=== PATIENT | male | born 1975 | race Two or more races ===

== ENCOUNTER 2018-03-20 20:02 | Emergency (ER) | payer BC ==
[~2018-03-20] VITALS: Ht 165.1 cm; Wt 86.2 kg
[2018-03-20 20:35] VITALS: BP 137/92
[2018-03-21] MEDS ORDERED: diphenhdrAMINE HCL 25 MG CAP PO ONE
[2018-03-21] MEDS ORDERED: TRIAMCINOLONE 40MG/ML 1ML VIAL IM ONE
[2018-03-21] MEDS ORDERED: FAMOTIDINE 20 MG TAB PO ONE
== END 2018-03-21 00:30 | disposition home or self-care (01) ==
LOC: ER 20:02
DX: T78.40XA Allergy, unspecified, initial encounter (principal); Z88.0 Allergy status to penicillin
CPT/HCPCS: 96372; 99283; J3301

== ENCOUNTER 2021-09-23 03:08 | Inpatient (IN) | payer BC ==
[~2021-09-23] VITALS: Ht 165.1 cm; Wt 92.4 kg
[2021-09-23 04:25] LABS: Basophils # (auto) 0.1 10 ^3/uL (0-0.2); Eosinophils # (auto) 0.1 10 ^3/uL (0-0.8); Eosinophils % (auto) 1.2 % (0.0-7.0); Hematocrit 38.4 % (41.0-53.0); Lymphocytes # (auto) 1.8 10 ^3/uL (0.4-5.4); Mean Corpuscular Volume 68.1 fL (80.0-100.0); Monocytes # (auto) 0.6 10 ^3/uL (0-1.3); Neutrophils # (auto) 8.3 10 ^3/uL (1.6-8.6); White Blood Cell 10.9 10^3/uL (4.4-10.8)
[2021-09-23 04:30] LABS: Basophils % (auto) 0.9 % (0.0-2.0); Hemoglobin 12.4 g/dL (13.5-17.5); Lymphocytes % (auto) 16.5 % (10.0-50.0); Mean Corpuscular Hemoglobin 21.9 pg (28.0-32.0); Mean Corpuscular Hgb Conc. 32.2 g/dL (32.0-36.0); Monocytes % (auto) 5.8 % (0.0-12.0); Neutrophils % (auto) 75.6 % (37.0-80.0); Red Blood Cells 5.64 10^6/uL (4.5-5.90); Red Cell Distribution Width 18.3 % (11.8-14.3)
[2021-09-23 04:33] LABS: Potassium 3.9 mmol/L (3.5-5.1)
[2021-09-23 04:39] LABS: Albumin 4.1 g/dL (3.4-5.0); BUN/Creatinine Ratio 13.3; Calcium 9.1 mg/dL (8.5-10.1); Magnesium 2.1 mg/dL (1.6-2.6)
[2021-09-23 04:44] LABS: Bilirubin, Total 0.4 mg/dL (0.2-1.0)
[2021-09-23 10:55] LABS: Urine Bacteria NONE SEEN /hpf (None Seen); Urine Blood Negative /uL (Negative); Urine Mucus FEW (None Seen); Urine Specific Gravity 1.034 (1.001-1.035); Urine WBC <1 /hpf (0 - 3)
[2021-09-23] MEDS ORDERED: SODIUM CHLORIDE 0.9% 500 ML IVB ONE (11:30)
[2021-09-23] MEDS ORDERED: HYDROmorphone HCL 2 MG/ML VL IV ONE ×2 (11:30→16:30)
[2021-09-23] MEDS ORDERED: METOCLOPRAMIDE HCL 5MG/ml INJ 2ml VIAL IV ONE (11:30)
[2021-09-23] MEDS ORDERED: SODIUM CHLORIDE 0.9% 1,000 ML IV ONE (11:30)
[2021-09-23] MEDS ORDERED: PROMETHAZINE HCL 25 MG/ML 1ML IV ONE (16:30)
[2021-09-23] MEDS ORDERED: ASPirin 81 mg TAB PO ONE (19:30)
[2021-09-23] MEDS ORDERED: DOCUSATE SOD 100 MG CAP PO PRN (19:30)
[2021-09-23] MEDS ORDERED: SODIUM CHLORIDE 0.9% 1,000 ML IV SCH (19:30)
[2021-09-23] MEDS ORDERED: MORPHINE SULFATE INJECTION 2 MG/ML SYRG IV PRN ×2 (19:30)
[2021-09-23] MEDS ORDERED: NITROGLYCERIN 0.4 MG SL TAB SL PRN ×2 (19:30)
[2021-09-23] MEDS ORDERED: METOPROLOL SUCCINATE XL 50 MG TAB PO ONE (19:30)
[2021-09-23] MEDS ORDERED: LORazepam 0.5 MG TAB PO PRN (19:30)
[2021-09-23] MEDS ORDERED: HYDROcodone-ACET 5/325MG TAB PO PRN (19:30)
[2021-09-23] MEDS ORDERED: ALUM & MAG HYDROX-SIMETH LIQ(MAALOX) 30 ML PO PRN (19:30)
[2021-09-23] MEDS ORDERED: SUCRALFATE 1 GM/10 ML ORAL SUSP PO ONE (19:30)
[2021-09-23] MEDS ORDERED: ACETAMINOPHEN 325 MG TAB PO PRN (19:30)
[2021-09-23] MEDS ORDERED: ATORVASTATIN 20 MG TAB PO ONE (19:30)
[2021-09-23] MEDS ORDERED: PANTOPRAZOLE 40 MG/10 ML VIAL INJ IV ONE (19:30)
[2021-09-23] MEDS: MORPHINE SULFATE INJECTION 2 MG/ML SYRG IV PRN (20:04)
[2021-09-23] MEDS: ONDANSETRON HCL 4 MG/2 ML VIAL IV PRN (20:05)
[2021-09-23 20:41] LABS: Cholesterol 170 mg/dL (< 200)
[2021-09-23 20:44] LABS: HDL Cholesterol 38 mg/dL (40-59); LDL Cholesterol 114 mg/dL (< 100); Triglycerides 118 mg/dL (< 150)
[2021-09-23 22:23] LABS: Amphetamine Screen, Urine NEGATIVE (NEGATIVE); Barbiturate Scree,Urine NEGATIVE (NEGATIVE); Benzodiazephine Screen, Urine NEGATIVE (NEGATIVE); Cannabinoid Screen, Urine NEGATIVE (NEGATIVE); Cocaine Screen, Urine NEGATIVE (NEGATIVE); Opiate Scree,Urine NEGATIVE (NEGATIVE); Phencyclidine Screen, Urine NEGATIVE (NEGATIVE)
[2021-09-23] MEDS: SUCRALFATE 1 GM/10 ML ORAL SUSP PO SCH (22:25)
[2021-09-23 23:23] VITALS: BP 117/73
[2021-09-24] MEDS: MORPHINE SULFATE INJECTION 2 MG/ML SYRG IV PRN ×4 (03:27→20:27)
[2021-09-24] MEDS: ONDANSETRON HCL 4 MG/2 ML VIAL IV PRN (03:28)
[2021-09-24 05:13] VITALS: BP 108/62
[2021-09-24] MEDS: SUCRALFATE 1 GM/10 ML ORAL SUSP PO SCH ×2 (06:13→11:56)
[2021-09-24 07:18] LABS: Basophils # (auto) 0.1 10 ^3/uL (0-0.2); Eosinophils # (auto) 0 10 ^3/uL (0-0.8); Lymphocytes # (auto) 1.3 10 ^3/uL (0.4-5.4); Mean Corpuscular Hgb Conc. 31.1 g/dL (32.0-36.0); White Blood Cell 15.6 10^3/uL (4.4-10.8)
[2021-09-24 07:22] LABS: Basophils % (auto) 0.5 % (0.0-2.0); Eosinophils % (auto) 0.1 % (0.0-7.0); Hematocrit 32.3 % (41.0-53.0); Lymphocytes % (auto) 8.4 % (10.0-50.0); Mean Corpuscular Hemoglobin 21.2 pg (28.0-32.0); Monocytes # (auto) 1.1 10 ^3/uL (0-1.3); Monocytes % (auto) 7.2 % (0.0-12.0); Neutrophils # (auto) 13.1 10 ^3/uL (1.6-8.6); Neutrophils % (auto) 83.8 % (37.0-80.0); Red Blood Cells 4.75 10^6/uL (4.5-5.90); Red Cell Distribution Width 17.9 % (11.8-14.3)
[2021-09-24 07:38] LABS: INR 1.14 (0.9-1.15); Partial Thromboplastin Time 32.8 sec (23.6-33.0)
[2021-09-24 07:42] LABS: Potassium 3.7 mmol/L (3.5-5.1)
[2021-09-24 08:02] LABS: Albumin 3.1 g/dL (3.4-5.0); Bilirubin, Total 0.7 mg/dL (0.2-1.0); Calcium 8.4 mg/dL (8.5-10.1); Magnesium 2.7 mg/dL (1.6-2.6); Phosphorus 2.4 mg/dL (2.5-4.90); Total Protein 6.8 g/dL (6.4-8.2); Uric Acid 5.8 mg/dL (3.5-7.2)
[2021-09-24 09:07] VITALS: BP 121/74
[2021-09-24] MEDS: PANTOPRAZOLE 40 MG/10 ML VIAL INJ IV SCH ×2 (09:41→20:28)
[2021-09-24] MEDS: ENOXAPARIN SOD 40 MG/0.4 ML SYRINGE SC SCH (09:41)
[2021-09-24] MEDS ORDERED: ASPirin 81 mg TAB PO SCH (10:00)
[2021-09-24] MEDS ORDERED: METOPROLOL SUCCINATE XL 50 MG TAB PO SCH (10:00)
[2021-09-24] MEDS ORDERED: GASTROGRAFIN 120 ML SOL ONE (10:34)
[2021-09-24] MEDS ORDERED: EZ-GAS II GRANULES (RADIOLOGY USE) PO ONE (10:37)
[2021-09-24] MEDS ORDERED: IOHEXOL 300 MG/ML 100ML BOTTLE IJ ONE (12:02)
[2021-09-24 12:48] VITALS: BP 126/75
[2021-09-24] MEDS ORDERED: LIDOCAINE 2% (LOCAL ANESTH.) PF 5ml SDV ONE (14:25)
[2021-09-24] MEDS ORDERED: ROCURONIUM 10MG/ML 10ML VIAL IV ONE (14:25)
[2021-09-24] MEDS ORDERED: KETAMINE HCL 10 ML ONE (14:25)
[2021-09-24] MEDS ORDERED: HYDROmorphone HCL 2 MG/ML VL ONE (14:25)
[2021-09-24] MEDS ORDERED: MIDAZOLAM HCL 2MG/2ML 2ml VIAL (1mg/ml) ONE (14:25)
[2021-09-24] MEDS ORDERED: PROPOFOL 10 MG/ML 20 ML IV ONE (14:25)
[2021-09-24] MEDS ORDERED: DexAMETHasone SOD PHOS 10MG/1ML VIAL INJ ONE (14:25)
[2021-09-24] MEDS ORDERED: GLYCOPYRROLATE 0.2 MG/ML 1ML VIAL ONE (14:25)
[2021-09-24] MEDS ORDERED: ePHEDrine SULFATE 50 MG/ML AMP ONE (14:25)
[2021-09-24] MEDS ORDERED: fentaNYL CITRATE 100 MCG/2 ML VL ONE (14:26)
[2021-09-24] MEDS ORDERED: fentaNYL CITRATE 5 ML ONE (14:26)
[2021-09-24] MEDS ORDERED: levoFLOXacin 500MG 100 ML IV ONE (14:38)
[2021-09-24] MEDS ORDERED: FAMOTIDINE (10MG/ML) 2ML VL IV ONE (14:50)
[2021-09-24] MEDS ORDERED: HYDROmorphone HCL 2 MG/ML VL IV PRN (17:15)
[2021-09-24] MEDS ORDERED: ONDANSETRON HCL 4 MG/2 ML VIAL IV PRN (17:15)
[2021-09-24] MEDS ORDERED: FUROSEMIDE 20 MG/2 ML VIAL IV ONE (17:30)
[2021-09-24 19:14] LABS: Basophils # (auto) 0 10 ^3/uL (0-0.2); Eosinophils # (auto) 0 10 ^3/uL (0-0.8); Mean Corpuscular Volume 68.3 fL (80.0-100.0); Monocytes # (auto) 0.4 10 ^3/uL (0-1.3)
[2021-09-24 19:16] LABS: Basophils % (auto) 0.3 % (0.0-2.0); Hematocrit 34.3 % (41.0-53.0); Hemoglobin 10.5 g/dL (13.5-17.5); Lymphocytes # (auto) 0.4 10 ^3/uL (0.4-5.4); Lymphocytes % (auto) 2.6 % (10.0-50.0); Mean Corpuscular Hgb Conc. 30.7 g/dL (32.0-36.0); Monocytes % (auto) 2.6 % (0.0-12.0); Neutrophils % (auto) 94.5 % (37.0-80.0); Red Blood Cells 5.02 10^6/uL (4.5-5.90); Red Cell Distribution Width 17.9 % (11.8-14.3); White Blood Cell 16.9 10^3/uL (4.4-10.8)
[2021-09-24 19:35] LABS: BUN/Creatinine Ratio 14.1; Calcium 8.3 mg/dL (8.5-10.1); Potassium 4.4 mmol/L (3.5-5.1)
[2021-09-24 19:38] LABS: Bilirubin, Total 0.5 mg/dL (0.2-1.0); Total Protein 6.2 g/dL (6.4-8.2)
[2021-09-24] MEDS: MEROPENEM 1GM IVPB 100 ML IV SCH ×2 (20:33→20:35)
[2021-09-24] MEDS: D5W/ SOD CHL 0.9%/KCL 20MEQ 1,000 ML IV SCH (20:34)
[2021-09-24 22:00] VITALS: BP 110/77
[2021-09-24] MEDS ORDERED: ATORVASTATIN 20 MG TAB PO SCH (22:00)
[2021-09-25] MEDS ORDERED: HYDROmorphone HCL 2 MG/ML VL IV PRN (00:15)
[2021-09-25] MEDS: D5W/ SOD CHL 0.9%/KCL 20MEQ 1,000 ML IV SCH ×3 (00:30→20:30)
[2021-09-25 05:00] VITALS: BP 113/73
[2021-09-25] MEDS: MEROPENEM 1GM IVPB 100 ML IV SCH ×3 (05:11→21:54)
[2021-09-25 06:20] LABS: Basophils # (auto) 0 10 ^3/uL (0-0.2); Basophils % (auto) 0.1 % (0.0-2.0); Eosinophils # (auto) 0 10 ^3/uL (0-0.8); Hematocrit 31.6 % (41.0-53.0); Lymphocytes # (auto) 0.7 10 ^3/uL (0.4-5.4); Monocytes # (auto) 0.8 10 ^3/uL (0-1.3); White Blood Cell 15.4 10^3/uL (4.4-10.8)
[2021-09-25 06:21] LABS: Lymphocytes % (auto) 4.6 % (10.0-50.0); Mean Corpuscular Hemoglobin 21.4 pg (28.0-32.0); Mean Corpuscular Hgb Conc. 31.5 g/dL (32.0-36.0); Mean Corpuscular Volume 68.1 fL (80.0-100.0); Neutrophils # (auto) 13.9 10 ^3/uL (1.6-8.6); Neutrophils % (auto) 90.3 % (37.0-80.0); Red Blood Cells 4.65 10^6/uL (4.5-5.90); Red Cell Distribution Width 18.4 % (11.8-14.3)
[2021-09-25 06:28] LABS: Lactic Acid w/Reflex 2.1 mmol/L (0.4-2.0)
[2021-09-25 06:33] LABS: Potassium 3.9 mmol/L (3.5-5.1)
[2021-09-25 06:44] LABS: Albumin 2.9 g/dL (3.4-5.0); BUN/Creatinine Ratio 10.3; Bilirubin, Total 0.4 mg/dL (0.2-1.0); Calcium 8.6 mg/dL (8.5-10.1); Magnesium 2.6 mg/dL (1.6-2.6); Total Protein 6.4 g/dL (6.4-8.2)
[2021-09-25] MEDS: HYDROmorphone HCL 2 MG/ML VL IV PRN ×3 (08:40→19:35)
[2021-09-25 09:00] VITALS: BP 127/75
[2021-09-25] MEDS: ENOXAPARIN SOD 40 MG/0.4 ML SYRINGE SC SCH (10:00)
[2021-09-25] MEDS: PANTOPRAZOLE 40 MG/10 ML VIAL INJ IV SCH ×2 (10:00→21:54)
[2021-09-25] MEDS ORDERED: TPN PER PHARMACY 0 ML IV SCH (10:15)
[2021-09-25] MEDS ORDERED: LORazepam 2MG/ML-1ML VIAL IV PRN (10:30)
[2021-09-25 11:09] LABS: Phosphorus 2.7 mg/dL (2.5-4.90)
[2021-09-25 12:37] VITALS: BP 121/72
[2021-09-25 16:35] VITALS: BP 117/79
[2021-09-25] MEDS ORDERED: SORE THROAT SPRAY 6OZ BOTTLE MT PRN (16:45)
[2021-09-25] MEDS ORDERED: PPN PER PHARMACY IV NR ×7 (20:00)
[2021-09-25 22:00] VITALS: BP 125/81
[2021-09-26] MEDS ORDERED: DEXTROSE (50%) 50ML SYRG IV SCH
[2021-09-26] MEDS: ACCU-CHEK COMFORT CURVE STRIP VI SCH ×4 (00:06→18:09)
[2021-09-26] MEDS: InsuLIN REG 1unit/0.01ml Soln (100units/ml) SC SCH ×4 (00:11→18:00)
[2021-09-26] MEDS: D5W/ SOD CHL 0.9%/KCL 20MEQ 1,000 ML IV SCH (01:48)
[2021-09-26] MEDS: HYDROmorphone HCL 2 MG/ML VL IV PRN ×3 (03:36→16:15)
[2021-09-26 04:29] VITALS: BP 134/77
[2021-09-26] MEDS: MEROPENEM 1GM IVPB 100 ML IV SCH ×3 (05:15→23:38)
[2021-09-26 07:01] LABS: Basophils # (auto) 0.1 10 ^3/uL (0-0.2); Eosinophils # (auto) 0 10 ^3/uL (0-0.8); Lymphocytes # (auto) 1.6 10 ^3/uL (0.4-5.4); Mean Corpuscular Hgb Conc. 30.5 g/dL (32.0-36.0); Neutrophils # (auto) 8.7 10 ^3/uL (1.6-8.6)
[2021-09-26 07:03] LABS: Basophils % (auto) 0.5 % (0.0-2.0); Eosinophils % (auto) 0.3 % (0.0-7.0); Hematocrit 35.2 % (41.0-53.0); Hemoglobin 10.7 g/dL (13.5-17.5); Lymphocytes % (auto) 14.3 % (10.0-50.0); Mean Corpuscular Hemoglobin 20.9 pg (28.0-32.0); Mean Corpuscular Volume 68.6 fL (80.0-100.0); Monocytes # (auto) 0.8 10 ^3/uL (0-1.3); Monocytes % (auto) 6.9 % (0.0-12.0); Red Blood Cells 5.14 10^6/uL (4.5-5.90); Red Cell Distribution Width 17.9 % (11.8-14.3); White Blood Cell 11.2 10^3/uL (4.4-10.8)
[2021-09-26 07:22] LABS: Potassium 3.9 mmol/L (3.5-5.1)
[2021-09-26 07:33] LABS: Bilirubin, Total 0.3 mg/dL (0.2-1.0); Calcium 8.3 mg/dL (8.5-10.1); Magnesium 2.8 mg/dL (1.6-2.6); Phosphorus 2.1 mg/dL (2.5-4.90); Total Protein 6.7 g/dL (6.4-8.2)
[2021-09-26 09:00] VITALS: BP 123/85
[2021-09-26] MEDS: PANTOPRAZOLE 40 MG/10 ML VIAL INJ IV SCH ×2 (09:27→23:38)
[2021-09-26] MEDS: ENOXAPARIN SOD 40 MG/0.4 ML SYRINGE SC SCH (09:28)
[2021-09-26] MEDS ORDERED: POTASSIUM PHOSPHATE 22 MEQ in SODIUM CHL 0.9% 100 ML IV ONE (10:45)
[2021-09-26 13:43] VITALS: BP 118/73
[2021-09-26] MEDS ORDERED: LIDOCAINE 1% (LOCAL ANESTH.) PF 5ml SDV ID ONE (15:00)
[2021-09-26 16:34] VITALS: BP 130/73
[2021-09-26 20:00] VITALS: BP 121/74
[2021-09-26] MEDS: PPN PER PHARMACY IV NR ×6 (21:32)
[2021-09-26 21:52] VITALS: BP 136/82
[2021-09-26] MEDS: SODIUM CHLOR 0.9% PF (SALINE LOCK) 10ML VIAL/SYR IV SCH (23:39)
[2021-09-27 05:00] VITALS: BP 124/68
[2021-09-27] MEDS: ACCU-CHEK COMFORT CURVE STRIP VI SCH ×5 (05:20→23:58)
[2021-09-27] MEDS: InsuLIN REG 1unit/0.01ml Soln (100units/ml) SC SCH ×5 (05:20→23:57)
[2021-09-27 07:00] LABS: Basophils # (auto) 0.1 10 ^3/uL (0-0.2); Eosinophils # (auto) 0.1 10 ^3/uL (0-0.8); Lymphocytes # (auto) 1.3 10 ^3/uL (0.4-5.4); Mean Corpuscular Hemoglobin 20.8 pg (28.0-32.0)
[2021-09-27 07:02] LABS: Basophils % (auto) 0.8 % (0.0-2.0); Eosinophils % (auto) 1.6 % (0.0-7.0); Hematocrit 32.3 % (41.0-53.0); Lymphocytes % (auto) 17.4 % (10.0-50.0); Monocytes # (auto) 0.7 10 ^3/uL (0-1.3); Monocytes % (auto) 9.3 % (0.0-12.0); Neutrophils # (auto) 5.2 10 ^3/uL (1.6-8.6); Neutrophils % (auto) 70.9 % (37.0-80.0); Red Cell Distribution Width 17.9 % (11.8-14.3); White Blood Cell 7.4 10^3/uL (4.4-10.8)
[2021-09-27 07:09] LABS: Potassium 3.7 mmol/L (3.5-5.1)
[2021-09-27 07:15] LABS: Albumin 2.8 g/dL (3.4-5.0); BUN/Creatinine Ratio 18.2; Bilirubin, Total 0.4 mg/dL (0.2-1.0); Calcium 8.5 mg/dL (8.5-10.1); Magnesium 2.8 mg/dL (1.6-2.6); Phosphorus 3.1 mg/dL (2.5-4.90); Total Protein 6.4 g/dL (6.4-8.2)
[2021-09-27 07:21] LABS: Mean Corpuscular Volume 67.3 fL (80.0-100.0)
[2021-09-27] MEDS: MEROPENEM 1GM IVPB 100 ML IV SCH ×3 (07:22→21:31)
[2021-09-27 09:00] VITALS: BP 119/74
[2021-09-27] MEDS: HYDROmorphone HCL 2 MG/ML VL IV PRN ×2 (09:18→17:24)
[2021-09-27] MEDS: SODIUM CHLOR 0.9% PF (SALINE LOCK) 10ML VIAL/SYR IV SCH ×2 (10:00→22:00)
[2021-09-27] MEDS: ENOXAPARIN SOD 40 MG/0.4 ML SYRINGE SC SCH (10:00)
[2021-09-27] MEDS: PANTOPRAZOLE 40 MG/10 ML VIAL INJ IV SCH ×2 (10:00→22:39)
[2021-09-27 13:00] VITALS: BP 134/74
[2021-09-27 17:00] VITALS: BP 148/70
[2021-09-27] MEDS: PPN PER PHARMACY IV NR ×6 (19:45)
[2021-09-27] MEDS: TPN PER PHARMACY IV NR ×16 (20:47→21:00)
[2021-09-27 22:00] VITALS: BP 133/74
[2021-09-28] MEDS: MORPHINE SULFATE INJECTION 2 MG/ML SYRG IV PRN ×2 (02:00→09:29)
[2021-09-28 05:00] VITALS: BP 123/66
[2021-09-28] MEDS: MEROPENEM 1GM IVPB 100 ML IV SCH ×3 (06:10→21:24)
[2021-09-28] MEDS: InsuLIN REG 1unit/0.01ml Soln (100units/ml) SC SCH ×4 (06:12→23:06)
[2021-09-28] MEDS: ACCU-CHEK COMFORT CURVE STRIP VI SCH ×4 (06:12→23:03)
[2021-09-28 06:24] LABS: Potassium 3.7 mmol/L (3.5-5.1)
[2021-09-28 06:31] LABS: Albumin 2.7 g/dL (3.4-5.0); BUN/Creatinine Ratio 19.7; Bilirubin, Total 0.3 mg/dL (0.2-1.0); Calcium 8.4 mg/dL (8.5-10.1); Magnesium 2.7 mg/dL (1.6-2.6); Total Protein 6.3 g/dL (6.4-8.2)
[2021-09-28 06:37] LABS: Basophils # (auto) 0.1 10 ^3/uL (0-0.2); Eosinophils # (auto) 0.3 10 ^3/uL (0-0.8); Lymphocytes # (auto) 1.5 10 ^3/uL (0.4-5.4); Monocytes # (auto) 0.6 10 ^3/uL (0-1.3)
[2021-09-28 06:39] LABS: Basophils % (auto) 1.2 % (0.0-2.0); Lymphocytes % (auto) 22.4 % (10.0-50.0); Mean Corpuscular Hgb Conc. 31.1 g/dL (32.0-36.0); Monocytes % (auto) 8.3 % (0.0-12.0); Neutrophils # (auto) 4.4 10 ^3/uL (1.6-8.6); Neutrophils % (auto) 64.1 % (37.0-80.0); Red Blood Cells 4.76 10^6/uL (4.5-5.90); Red Cell Distribution Width 17.8 % (11.8-14.3); White Blood Cell 6.9 10^3/uL (4.4-10.8)
[2021-09-28 06:44] LABS: Mean Corpuscular Volume 67.3 fL (80.0-100.0)
[2021-09-28] MEDS ORDERED: GASTROGRAFIN 120 ML SOL ONE (08:21)
[2021-09-28] MEDS ORDERED: OMNIPAQUE ORAL SOLN 500ml 12mg/ml PO ONE (09:17)
[2021-09-28] MEDS: ENOXAPARIN SOD 40 MG/0.4 ML SYRINGE SC SCH (09:27)
[2021-09-28] MEDS: SODIUM CHLOR 0.9% PF (SALINE LOCK) 10ML VIAL/SYR IV SCH ×2 (09:27→21:25)
[2021-09-28] MEDS: PANTOPRAZOLE 40 MG/10 ML VIAL INJ IV SCH ×2 (09:27→21:31)
[2021-09-28 09:36] VITALS: BP 137/80
[2021-09-28 13:00] VITALS: BP 123/83
[2021-09-28 17:03] VITALS: BP 124/74
[2021-09-28] MEDS ORDERED: TPN PER PHARMACY IV NR ×9 (20:00)
[2021-09-28] MEDS: HYDROmorphone HCL 2 MG/ML VL IV PRN (20:36)
[2021-09-28 22:00] VITALS: BP 110/79
[2021-09-29 05:00] VITALS: BP 121/82
[2021-09-29] MEDS: MEROPENEM 1GM IVPB 100 ML IV SCH ×3 (05:09→22:26)
[2021-09-29] MEDS: InsuLIN REG 1unit/0.01ml Soln (100units/ml) SC SCH ×4 (05:09→23:31)
[2021-09-29] MEDS: ACCU-CHEK COMFORT CURVE STRIP VI SCH ×4 (05:10→23:30)
[2021-09-29 07:54] LABS: Potassium 4.1 mmol/L (3.5-5.1)
[2021-09-29 08:00] VITALS: BP 121/74
[2021-09-29 08:02] LABS: Albumin 2.9 g/dL (3.4-5.0); BUN/Creatinine Ratio 21.4; Bilirubin, Total 0.4 mg/dL (0.2-1.0); Calcium 8.5 mg/dL (8.5-10.1); Phosphorus 3.4 mg/dL (2.5-4.90); Total Protein 6.6 g/dL (6.4-8.2)
[2021-09-29 09:00] VITALS: BP 111/80
[2021-09-29] MEDS: SODIUM CHLOR 0.9% PF (SALINE LOCK) 10ML VIAL/SYR IV SCH ×2 (09:50→22:26)
[2021-09-29] MEDS: ENOXAPARIN SOD 40 MG/0.4 ML SYRINGE SC SCH (09:50)
[2021-09-29] MEDS: PANTOPRAZOLE 40 MG/10 ML VIAL INJ IV SCH ×2 (09:50→22:26)
[2021-09-29 13:00] VITALS: BP 116/78
[2021-09-29] MEDS: TPN PER PHARMACY IV NR ×8 (20:34)
[2021-09-29 22:00] VITALS: BP 123/72
[2021-09-30] MEDS: MORPHINE SULFATE INJECTION 2 MG/ML SYRG IV PRN (00:57)
[2021-09-30 05:00] VITALS: BP 120/68
[2021-09-30] MEDS: MEROPENEM 1GM IVPB 100 ML IV SCH ×3 (05:48→21:36)
[2021-09-30] MEDS: ACCU-CHEK COMFORT CURVE STRIP VI SCH ×3 (05:54→18:00)
[2021-09-30] MEDS: InsuLIN REG 1unit/0.01ml Soln (100units/ml) SC SCH ×3 (06:00→18:00)
[2021-09-30 07:33] LABS: Basophils # (auto) 0.1 10 ^3/uL (0-0.2); Basophils % (auto) 1.1 % (0.0-2.0); Hemoglobin 10.9 g/dL (13.5-17.5); Mean Corpuscular Volume 67.5 fL (80.0-100.0); Monocytes # (auto) 0.7 10 ^3/uL (0-1.3)
[2021-09-30 07:35] LABS: Eosinophils # (auto) 0.3 10 ^3/uL (0-0.8); Eosinophils % (auto) 3.3 % (0.0-7.0); Hematocrit 35.1 % (41.0-53.0); Lymphocytes # (auto) 1.8 10 ^3/uL (0.4-5.4); Lymphocytes % (auto) 22.4 % (10.0-50.0); Mean Corpuscular Hemoglobin 20.9 pg (28.0-32.0); Monocytes % (auto) 8.4 % (0.0-12.0); Neutrophils # (auto) 5.3 10 ^3/uL (1.6-8.6); Neutrophils % (auto) 64.8 % (37.0-80.0); Nucleated Red Blood Cells % 0.1 %; Red Cell Distribution Width 17.9 % (11.8-14.3); White Blood Cell 8.2 10^3/uL (4.4-10.8)
[2021-09-30 08:08] LABS: BUN/Creatinine Ratio 23.3; Bilirubin, Total 0.3 mg/dL (0.2-1.0); Calcium 8.6 mg/dL (8.5-10.1); Magnesium 2.9 mg/dL (1.6-2.6); Phosphorus 2.8 mg/dL (2.5-4.90); Total Protein 6.8 g/dL (6.4-8.2)
[2021-09-30] MEDS: ENOXAPARIN SOD 40 MG/0.4 ML SYRINGE SC SCH (08:23)
[2021-09-30] MEDS: PANTOPRAZOLE 40 MG/10 ML VIAL INJ IV SCH ×2 (08:23→21:35)
[2021-09-30] MEDS: SODIUM CHLOR 0.9% PF (SALINE LOCK) 10ML VIAL/SYR IV SCH ×2 (08:23→21:35)
[2021-09-30 09:00] VITALS: BP 117/69
[2021-09-30 13:00] VITALS: BP 106/76
[2021-09-30 16:40] VITALS: BP 112/73
[2021-09-30 17:02] VITALS: BP 112/73
[2021-09-30] MEDS: TPN PER PHARMACY IV NR ×8 (19:58)
[2021-09-30] MEDS ORDERED: TPN PER PHARMACY IV NR ×9 (20:00)
[2021-09-30 21:37] VITALS: BP 117/68
[2021-10-01] MEDS: ACCU-CHEK COMFORT CURVE STRIP VI SCH ×5 (00:04→23:01)
[2021-10-01 05:00] VITALS: BP 109/69
[2021-10-01] MEDS: InsuLIN REG 1unit/0.01ml Soln (100units/ml) SC SCH ×5 (05:20→23:01)
[2021-10-01] MEDS: MEROPENEM 1GM IVPB 100 ML IV SCH ×4 (05:25→21:28)
[2021-10-01 06:29] LABS: Potassium 4.4 mmol/L (3.5-5.1)
[2021-10-01 06:42] LABS: Albumin 2.8 g/dL (3.4-5.0); BUN/Creatinine Ratio 21.5; Bilirubin, Total 0.3 mg/dL (0.2-1.0); Calcium 8.5 mg/dL (8.5-10.1); Magnesium 2.8 mg/dL (1.6-2.6); Phosphorus 3.3 mg/dL (2.5-4.90); Total Protein 6.4 g/dL (6.4-8.2)
[2021-10-01 08:00] VITALS: BP 117/67
[2021-10-01 08:15] VITALS: BP 117/67
[2021-10-01] MEDS: PANTOPRAZOLE 40 MG/10 ML VIAL INJ IV SCH ×2 (09:49→21:28)
[2021-10-01] MEDS: SODIUM CHLOR 0.9% PF (SALINE LOCK) 10ML VIAL/SYR IV SCH ×2 (09:49→21:29)
[2021-10-01] MEDS: ENOXAPARIN SOD 40 MG/0.4 ML SYRINGE SC SCH (09:52)
[2021-10-01 13:00] VITALS: BP 113/63
[2021-10-01 16:43] VITALS: BP 130/73
[2021-10-01] MEDS ORDERED: TPN PER PHARMACY IV NR ×8 (20:00)
[2021-10-01 22:00] VITALS: BP 117/68
[2021-10-02 05:00] VITALS: BP 110/66
[2021-10-02] MEDS: InsuLIN REG 1unit/0.01ml Soln (100units/ml) SC SCH ×3 (06:00→18:00)
[2021-10-02] MEDS: ACCU-CHEK COMFORT CURVE STRIP VI SCH ×3 (06:21→18:00)
[2021-10-02] MEDS: MEROPENEM 1GM IVPB 100 ML IV SCH ×2 (06:21→14:45)
[2021-10-02 07:15] LABS: Calcium 8.4 mg/dL (8.5-10.1); Potassium 4.4 mmol/L (3.5-5.1)
[2021-10-02 07:22] LABS: Albumin 2.9 g/dL (3.4-5.0); BUN/Creatinine Ratio 23.2; Bilirubin, Total 0.3 mg/dL (0.2-1.0); Magnesium 2.8 mg/dL (1.6-2.6); Phosphorus 3.2 mg/dL (2.5-4.90); Total Protein 6.5 g/dL (6.4-8.2)
[2021-10-02 09:11] VITALS: BP 114/63
[2021-10-02] MEDS: PANTOPRAZOLE 40 MG/10 ML VIAL INJ IV SCH (09:19)
[2021-10-02] MEDS: ENOXAPARIN SOD 40 MG/0.4 ML SYRINGE SC SCH (09:20)
[2021-10-02] MEDS: SODIUM CHLOR 0.9% PF (SALINE LOCK) 10ML VIAL/SYR IV SCH (09:20)
[2021-10-02] MEDS ORDERED: METR500T PO (14:05)
[2021-10-02] MEDS ORDERED: LEVO500T31 PO (14:05)
[2021-10-02] MEDS ORDERED: PANT40TA2 PO (14:05)
[2021-10-02] MEDS ORDERED: CHOL20007 PO (14:09)
[2021-10-02 14:22] VITALS: BP 117/74
[2021-10-02 17:06] VITALS: BP 122/75
[2021-10-02 17:17] VITALS: BP 122/75
[2021-10-02] MEDS ORDERED: TPN PER PHARMACY IV NR ×9 (20:00)
== END 2021-10-02 18:40 | disposition home or self-care (01) | DRG 853 ==
LOC: ER 03:08 → OVERFLOW 19:23 → TELE-WESTW 23:35
PROVIDERS: ADMIT Hospitalist; ATTEND Internal Medicine
PROC: 0DJW0ZZ Inspection of Peritoneum, Open Approach (ICD-10-PCS; principal; 2021-09-24 14:48)
PROC: 0DJ08ZZ Inspection of Upper Intestinal Tract, Via Natural or Artificial Opening Endoscopic (ICD-10-PCS; 2021-09-24 14:48)
PROC: 3E0336Z Introduction of Nutritional Substance into Peripheral Vein, Percutaneous Approach (ICD-10-PCS; 2021-09-25)
PROC: 02H633Z Insertion of Infusion Device into Right Atrium, Percutaneous Approach (ICD-10-PCS; 2021-09-26)
DX: A41.9 Sepsis, unspecified organism (principal); J69.0 Pneumonitis due to inhalation of food and vomit; K63.1 Perforation of intestine (nontraumatic); J90 Pleural effusion, not elsewhere classified; D64.9 Anemia, unspecified; E55.9 Vitamin D deficiency, unspecified; E66.01 Morbid (severe) obesity due to excess calories; E78.5 Hyperlipidemia, unspecified; I10 Essential (primary) hypertension; K21.9 Gastro-esophageal reflux disease without esophagitis; K29.70 Gastritis, unspecified, without bleeding; Z68.35 Body mass index [BMI] 35.0-35.9, adult; Z20.822 Contact with and (suspected) exposure to COVID-19
CPT/HCPCS: 36415; 36569; 71045; 71046; 74150; 74170; 74176; 74246; 76705; 80053; 80061; 80307; 81001; 82040; 82306; 82962; 83036; 83605; 83690; 83735; 83880; 84100; 84443; 84478; 84484; 84550; 85025; 85610; 85730; 86850; 86900; 86901; 87040; 87086; 87426; 93005; 96361; 96374; 96375; C9113; G0378; J1100; J1815; J1956; J2001; J2185; J2250; J2405; J2704; J3490; J7131